=== PATIENT | female | born 1995 | race Caucasian/White ===

== ENCOUNTER 2020-08-10 23:31 | Emergency (ER) | payer BC, MEDICAID ==
[~2020-08-10] VITALS: Ht 167.6 cm; Wt 52.2 kg
--- NOTE | 2020-08-10 23:29 | NUR ---
ED Nurse Note: Pt brought in by ambulance. Per EMS they were dispatched dt the pt not having enough Keppra. Pt states that she felt like she was going to have a siezure tonight around 22:45 at the [facility] but took 600 mg of Gabapentin when she experinced an mahogany. She states that she has been out of her keppra for a week and a half.
[2020-08-10 23:38] VITALS: BP 162/90
[2020-08-10] MEDS ORDERED: KEPPRA1000 MG ORAL (23:39)
[2020-08-10] MEDS ORDERED: GABAPENTIN400 MG ORAL (23:39)
--- NOTE | 2020-08-10 23:48 | Emergency Room Report ---
History of Present Illness General Chief Complaint: Medication Refill Source: Patient Present Illness HPI 24-year-old male to female currently in process of transitioning, history of epilepsy supposed to be taking gabapentin and Keppra, here for medication refill. Patient recently moved here and has not been able to fill her medications. Patient has been taking her morning dose of gabapentin 300 mg, however she has run out of her night dose of 800 mg gabapentin as well as her Keppra which she is supposed to be taking 1000 mg daily. Claims he last had a seizure 2 weeks ago. Has been out of her medications for about 10 days. At this time denies headache, vision changes, neck stiffness, neck pain, fevers, chills, chest pain, palpitations shortness of breath, back pain, abdominal pain, nausea, vomiting, diarrhea, dysuria. Allergies: Coded Allergies: No Known Allergies (Unverified , 08/10/20) COVID-19 Screening Contact w/high risk pt: No Experienced COVID-19 symptoms?: No COVID-19 Testing performed MISSILE PAD MECHANIC: No Nursing Documentation-PMH Hx Seizures: Yes Review of Systems All Other Systems: negative except mentioned in HPI Physical Exam Vital Signs Date Time Temp Pulse Resp B/P (MAP) Pulse Ox O2 Delivery O2 Flow Rate FiO2 08/10/20 23:25 98.4 100 18 184/90 (121) 99 Room Air Sp02 EP Interpretation: reviewed, normal General Appearance: no apparent distress, alert, non-toxic Head: normocephalic, atraumatic Eyes: bilateral eye normal inspection, bilateral eye PERRL ENT: hearing grossly normal, normal pharynx, no angioedema, normal voice Neck: full range of motion, supple/symm/no masses Respiratory: chest non-tender, lungs clear, normal breath sounds, speaking full sentences Cardiovascular #1: regular rate, rhythm, no edema Cardiovascular #2: 2+ carotid (R), 2+ carotid (L), 2+ radial (R), 2+ radial (L), 2+ dorsalis pedis (R), 2+ dorsalis pedis (L) Gastrointestinal: normal bowel sounds, non tender, soft, non-distended, no guarding, no rebound Rectal: deferred Genitourinary: normal inspection, no CVA tenderness Musculoskeletal: back normal, normal range of motion, gait/station normal, non- tender Neurologic: alert, motor strength/tone normal, oriented x3, sensory intact, res ponsive, speech normal Psychiatric: judgement/insight normal, memory normal, mood/affect normal, no suicidal/homicidal ideation Lymphatic: no adenopathy Medical Decision Making Diagnostic Impression: Primary Impression: Encounter for medication refill ER Course 24-year-old male to female transition here with medication refill. Patient had normal neurologic examination and was in no acute distress whatsoever in the emergency department. Patient is also take gabapentin and Keppra daily. Patient has plenty of her 300 mg gabapentin which she takes in the morning. However she has run out of 800 mg gabapentin that she is supposed to take nightly, and is also run out of her 1000 mg Keppra that she supposed to take daily. She was given prescription for these medications to last for 30 days. She does have a primary care doctor and a neurologist that she is going to be following up with this week. Was given 1000 mg Keppra in the emergency department. Told to return with any symptoms. Discharged in stable condition. Last Vital Signs Date Time Temp Pulse Resp B/P (MAP) Pulse Ox O2 Delivery O2 Flow Rate FiO2 08/10/20 23:38 98.2 76 18 162/90 99 Room Air Disposition: HOME, SELF-CARE Condition: Stable Scripts Gabapentin* (GABAPENTIN*) 400 Mg Capsule 400 MG ORAL TWICE A DAY for 30 Days, CAP 0 Refills Prov: Michael Shepard M.D. 08/10/20 Levetiracetam (KEPPRA) 1,000 Mg Tablet 1000 MG ORAL DAILY, #30 TAB 0 Refills Prov: Michael Shepard M.D. 08/10/20 [facility] Patient Instructions: Medicine Refill at the Emergency Department Additional Instructions: Please follow-up with your primary care doctor in the next 1 to 3 days to discuss this emergency department visit and for reevaluation. If you have any new or worsening symptoms please return to the emergency department for reevaluation. Michael Shepard M.D. Aug 10, 2020 23:48
--- NOTE | 2020-08-10 23:54 | NUR ---
ER DISCHARGE NOTE: Patient is cleared to be discharged per ERMD, pt is aox4, on room air, with stable vital signs. pt was given dc and prescription instructions, pt was able to verbalize understanding, pt id band removed. pt is able to ambulate with steady gait. pt took all belongings. Pt lives at a transitional house for trans women. Pt left in a private car.
[2020-08-10 23:55] VITALS: BP 156/90
== END 2020-08-10 23:55 | disposition home or self-care (01) ==
LOC: EDBD 23:31 → EMR 23:55
DX: Z76.0 Encounter for issue of repeat prescription (principal); G40.909 Epilepsy, unspecified, not intractable, without status epilepticus; Z79.899 Other long term (current) drug therapy
CPT/HCPCS: 99282

== ENCOUNTER 2020-08-12 22:57 | Emergency (ER) | payer BC, MEDICAID ==
[~2020-08-12] VITALS: Ht 167.6 cm; Wt 52.2 kg
[2020-08-12 22:57] VITALS: BP 152/73
[~2020-08-12 22:57] MED LIST: GABAPENTIN400 MG ORAL; KEPPRA1000 MG ORAL
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
[2020-08-12 23:00] VITALS: BP 125/70
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
== END 2020-08-12 23:00 | disposition left against medical advice (07) ==
LOC: EDBD 22:57 → EMR 23:00
DX: F91.9 Conduct disorder, unspecified (principal)
CPT/HCPCS: 99282